=== PATIENT | female | born 1960 | race Caucasian/White ===

== ENCOUNTER 2018-04-04 17:39 | Emergency (ER) | payer BC, OTHER ==
[2018-04-04] MEDS: ONDANSETRON 4MG/2ML VIAL (J2405) IV ×3 (18:15)
[2018-04-04 18:41] LABS: BASO % 0.4 % (0.0-1.0); EOS # 0.1 10^3/uL (0.0-0.50); HEMATOCRIT 33.5 % (36.0-47.0); HEMOGLOBIN 10.2 g/dl (12.0-15.5); IMMATURE GRANULOCYTE % 0.3 % (0-3.0); LYMPH # 1.1 10^3/uL (1.5-4.5); LYMPH % 15.5 % (24.0-44.0); MEAN CORPUSCULAR HEMOGLOBIN 22.7 pg (27.0-33.0); MEAN CORPUSCULAR HGB CONC 30.4 g/dl (32.0-36.5); MEAN CORPUSCULAR VOLUME 74.6 fl (80.0-96.0); MONO # 0.6 10^3/uL (0.0-0.8); MONO % 8.2 % (0.0-5.0); NEUTROPHILS # 5.2 10^3/uL (1.8-7.7); NEUTROPHILS % 73.6 % (36.0-66.0); PLATELET COUNT, AUTOMATED 290 10^3/uL (150-450); RED BLOOD COUNT 4.49 10^6/uL (4.00-5.40); RED CELL DISTRIBUTION WIDTH 16.6 % (11.5-14.5)
[2018-04-04 19:01] LABS: D-DIMER QUANT 444.2 ng/ml (<500)
[2018-04-04 19:09] LABS: ALBUMIN/GLOBULIN RATIO 1.05 (1.00-1.93); ALKALINE PHOSPHATASE 88 U/L (45-117); ALT/SGPT 24 U/L (12-78); ANION GAP 8 MEQ/L (8-16); AST/SGOT 13 U/L (7-37); BILIRUBIN,DIRECT 0.1 MG/DL (0.0-0.2); BILIRUBIN,TOTAL 0.5 MG/DL (0.2-1.0); BLOOD UREA NITROGEN 8 MG/DL (7-18); CALCIUM LEVEL 8.8 MG/DL (8.5-10.1); CARBON DIOXIDE LEVEL 28 MEQ/L (21-32); CHLORIDE LEVEL 102 MEQ/L (98-107); CPK CREATINE PHOSPHOKINASE 127 U/L (26-192); CREATININE FOR GFR 0.99 MG/DL (0.55-1.30); GLOMERULAR FILTRATION RATE > 60.0 (>51); GLUCOSE, FASTING 103 MG/DL (70-100); LIPASE 125 U/L (73-393); POTASSIUM SERUM 3.9 MEQ/L (3.5-5.1); SODIUM LEVEL 138 MEQ/L (136-145); TOTAL PROTEIN 7.8 GM/DL (6.4-8.2); TROPONIN I < 0.02 NG/ML (< 0.10)
[2018-04-04 19:10] LABS: CK-MB VALUE MASS < 1.0 NG/ML (<3.6); MB/CK RELATIVE INDEX 0.78 (< OR =4); NT-PRO BNP 399 PG/ML (<125)
[2018-04-04 19:41] LABS: KETONE, URINE AUTO RFX 1+ mg/dL (NEGATIVE); NITRITE, URINE AUTO RFX NEGATIVE (NEGATIVE); RBC, URINE AUTO RFX 2 /HPF (0-3); SPECIFIC GRAVITY UR AUTO RFX 1.015 (1.002-1.035); SQUAM EPITHELIAL CELL UR AURFX 2 /HPF (0-6)
[2018-04-04 20:06] LABS: LEUKOCYTE ESTERASE UR AUTO RFX 2+ (NEGATIVE); WBC, URINE AUTO RFX 29 /HPF (0-3)
[2018-04-04 20:30] LABS: INFLUENZA A AMPLIFICATION NEGATIVE (NEGATIVE); INFLUENZA B AMPLIFICATION NEGATIVE (NEGATIVE)
[2018-04-04] MEDS ORDERED: ISOVUE-370 76% 100ML VIAL (Q9967) As Ordered ×3 (21:03)
== END 2018-04-04 22:11 | disposition home or self-care (01) ==
LOC: M ED 17:39
DX: J06.9 Acute upper respiratory infection, unspecified (principal); N39.0 Urinary tract infection, site not specified; I50.9 Heart failure, unspecified; I11.0 Hypertensive heart disease with heart failure; K21.9 Gastro-esophageal reflux disease without esophagitis; F32.9 Major depressive disorder, single episode, unspecified; M54.9 Dorsalgia, unspecified; G89.29 Other chronic pain; Z87.891 Personal history of nicotine dependence; Z79.899 Other long term (current) drug therapy
CPT/HCPCS: J2405

== ENCOUNTER 2018-06-02 11:50 | Emergency (ER) | payer OTHER, BC ==
[2018-06-02] MEDS: AMPICILLIN SOD/SULBACTAM SOD 3 GM in D5W MINI-BAG PLUS 100 ML IV (14:03)
[2018-06-02] MEDS: KETOROLAC 30 MG/ML VIAL (J1885) IV (14:03)
[2018-06-02 14:14] LABS: BASO % 0.9 % (0.0-1.0); EOS # 0.1 10^3/uL (0.0-0.50); EOS % 1.6 % (0.0-3.0); HEMATOCRIT 33.9 % (36.0-47.0); HEMOGLOBIN 10.1 g/dl (12.0-15.5); IMMATURE GRANULOCYTE % 0.2 % (0-3.0); LYMPH # 1.6 10^3/uL (1.5-4.5); LYMPH % 36.5 % (24.0-44.0); MEAN CORPUSCULAR HEMOGLOBIN 22.9 pg (27.0-33.0); MEAN CORPUSCULAR HGB CONC 29.8 g/dl (32.0-36.5); MEAN CORPUSCULAR VOLUME 76.7 fl (80.0-96.0); MONO # 0.4 10^3/uL (0.0-0.8); MONO % 9.5 % (0.0-5.0); NEUTROPHILS # 2.3 10^3/uL (1.8-7.7); NEUTROPHILS % 51.3 % (36.0-66.0); PLATELET COUNT, AUTOMATED 281 10^3/uL (150-450); RED BLOOD COUNT 4.42 10^6/uL (4.00-5.40); WHITE BLOOD COUNT 4.4 10^3/uL (4.0-10.0)
[2018-06-02 14:25] LABS: ANION GAP 7 MEQ/L (8-16); BLOOD UREA NITROGEN 6 MG/DL (7-18); CALCIUM LEVEL 8.5 MG/DL (8.5-10.1); CARBON DIOXIDE LEVEL 32 MEQ/L (21-32); CHLORIDE LEVEL 103 MEQ/L (98-107); CREATININE FOR GFR 0.66 MG/DL (0.55-1.30); GLOMERULAR FILTRATION RATE > 60.0 (>51); GLUCOSE, FASTING 100 MG/DL (70-100); POTASSIUM SERUM 3.1 MEQ/L (3.5-5.1); SODIUM LEVEL 142 MEQ/L (136-145)
== END 2018-06-02 15:09 | disposition home or self-care (01) ==
LOC: M ED 11:50
DX: K04.7 Periapical abscess without sinus (principal); K02.9 Dental caries, unspecified; L03.211 Cellulitis of face; Z87.891 Personal history of nicotine dependence; Z79.899 Other long term (current) drug therapy; Z79.2 Long term (current) use of antibiotics
CPT/HCPCS: J1885

== ENCOUNTER → 2018-06-19 | Outpatient (REF) | payer OTHER | LOC: M LAB REF 16:18 | DX: R30.0 Dysuria (principal) | CPT/HCPCS: 87086 ==

== ENCOUNTER → 2019-01-07 | Outpatient (CLI) | payer OTHER ==
[~2019-01-07] MED LIST: /LANS30GR OR; /ROPI5TA; /ROPI5TA OR; ACET500C OR; AMIT10TA2; AMIT10TA2 OR; AMOX500C PO; ATOR40TA75 PO; AUGM875T28 PO; BACT800T5 PO; CEFT500T OR; FERR325T OR; FLEXERIL PO; FLUO20CA19; FURO20TA2 PO; LISI-542; LISI5TAB; MULTIVIT; MULTIVIT PO; OMEP20CA3; PREV30TA; PROAAER10 INH; PROZ40CA; PROZ40CA OR; TRAM50TA2; TRAM50TA2 OR; ULTR50TA8 PO; ZANA4CAP; ZEST20TA4; ZEST20TA4 OR; ZITH250T OR
--- NOTE | 2019-01-07 18:47 | REP ---
LEFT BREAST ULTRASOUND: 01/07/2019. Clinical history: Palpable lumps left breast for 3-4 weeks, upper inner quadrant and axillary region both "pea-sized", nontender. She has a personal history of breast cancer with left lumpectomy, but no radiation or chemotherapy. Sonographic evaluation of the left breast at the 11 o'clock region upper inner quadrant at the site of the palpable lump shows slight focus of skin thickening up to 4.2 mm with the skin on either side of this about 1.5 mm thick. This fusiform thickening is homogeneous to the surrounding subcutaneous tissues and has a length of about 8 mm. Deep to it, there is heterogeneous echogenic tissue consistent with fatty change seen in the breast on mammogram. There is no architectural distortion, mass, cyst or dilated duct. In the left axilla, there is a 5.6 x 6.7 x 3.8 mm lymph node with morphologically normal sonographic appearance with an echogenic fatty central zone and hilum and a hypoechoic peripheral zone. By size and morphology this is a normal lymph node. There were no other findings in the axilla. Impression: 1. Upper inner quadrant shows a small focal area of fusiform skin thickening isoechoic to the surrounding skin. This has a length of about 8 mm and the fusiform thickness is maximum at 4 mm while surrounding skin about 1.5 mm. This would be a highly unusual presentation for breast carcinoma. 2. Left axillary region shows a 6.7 x 5.6 x 3.8 mm lymph node, by size and sonographic morphology this is a normal lymph node. Please see mammogram report this date for final assessment and recommendation. Electronically Signed by Luke Osei MD 01/07/2019 07:44 P
--- NOTE | 2019-01-07 18:59 | REP ---
BILATERAL DIAGNOSTIC DIGITAL MAMMOGRAM: 01/07/2019. Comparison: Left breast ultrasound today, mammogram 06/02/2013, 12/07/2009. Clinical history: Patient with two palpable findings for about 3 to 4 weeks left breast, one in the upper inner quadrant, the other at the high left axilla. History significant for personal history of breast cancer with lumpectomy in that left breast. Technique: Standard CC and MLO projections with 3-D tomosynthesis images and spot magnified images of the upper inner quadrant and axillary tail region. Marker placed by the patient over these areas. Findings: Breast parenchyma show a few scattered fibroglandular elements which might obscure a lesion. Only minor asymmetry in size of the breast due to prior lumpectomy on the left. At the site of the marker on the left, there is a subjacent fatty replaced lymph node along the pectoralis muscle. Other bilateral fat replaced axillary nodes are present. There is a rim calcified nodule likely fat necrosis in the right breast. This is a new but benign finding. Similar finding in the anterior aspect of the left breast also new but benign, normal. There are no clustered microcalcification, visible dominant masses, or architectural distortion or no mammographically definable skin thickening noted. Subjacent to the triangle marker in the axillary region is the lymph node. The spot magnified views show no additional finding. Likewise the upper inner quadrant shows no discrete mammographic finding on spot magnified views or tomosynthesis. Left breast ultrasound: In the upper inner quadrant at 11 o'clock there is a focal area skin thickening about 8 mm long with maximum depth of 4 mm. There is a fusiform appearance and it is isoechoic to the surrounding skin which has a thickness of 1.5 mm. In the upper left axilla at the site of the palpable finding, there is a small lymph node with normal morphology by sonography with fatty central zone and hilum and a hypoechoic periphery. Has a maximum transverse diameter of 3.8 mm, normal. Impression: 1. BIRADS 2: BI-RADS/ACR category 2 mammogram. Benign Findings. No evidence of malignancy. Mammographic and sonographic finding of the axilla morphologically normal. Small sized lymph node is noted. The focal skin thickening in the upper inner quadrant is isoechoic to surrounding skin and has a maximum thickness of 4 mm versus 1.5 mm adjacent and a maximum length of 8 mm for this fusiform finding. It is not mammographically visible. 2. Recommend followup mammography 1 year. Any decision to biopsy a palpable lesion should be based on clinical grounds. This negative report should not deter further evaluation of a dominant or suspicious physical finding. This mammogram was interpreted with the aid of an FDA-approved computer-aided detection system. A. Negative x-ray reports should not delay biopsy if a dominant or clinically suspicious mass is present. B. Four to eight percent of cancers are not identified by x-ray. C. Adenosis and dense breasts may obscure an underlying neoplasm The patient states she/he had a clinical breast exam in 12/2018. The patient letter being requested is M2. Electronically Signed by Luke Osei MD 01/07/2019 07:45 P
== END ==
LOC: M RAD 11:05
PROVIDERS: ATTEND Nurse Practitioner
DX: N63.20 Unspecified lump in the left breast, unspecified quadrant (principal); Z85.3 Personal history of malignant neoplasm of breast
CPT/HCPCS: 76642; 77066; G0279

== ENCOUNTER 2019-11-25 08:14 | Day surgery (SDC) | payer OTHER ==
[~2019-11-25] VITALS: Ht 170.2 cm; Wt 101.2 kg
[~2019-11-25 08:14] MED LIST changes: -/ROPI5TA; -/ROPI5TA OR; +ACET-683 PO; +CYCL10TA PO; +FLUO40CA PO; -LISI-542; +LISI-542 PO; +NS 1,000 ML IV ONE; +OMEP1CAP73 PO; -OMEP20CA3; +REQU1TAB15; +REQU1TAB15 OR
[2019-11-25] MEDS ORDERED: propofoL 200 MG/20 ML VIAL As Ordered ONE ×2 (08:52→09:59)
[2019-11-25] MEDS ORDERED: LIDOCAINE 2% INJ 100 MG/5 ML SDV (FOR ANES.) As Ordered ONE (09:26)
--- NOTE | 2019-11-25 10:11 | ROOR ---
Patient Name: Betsey Retana Procedure Date: 11/25/2019 9:50 AM Date of : 1960 Age: 59 Room: [facility] Gender: Female Note Status: Finalized Procedure: Colonoscopy Indications: Screening for colorectal malignant neoplasm Providers: Andres Leyva Jr, MD Referring MD: NAEL MALHOTRA MD Requesting Provider: Medicines: Propofol per Anesthesia Complications: No immediate complications. Procedure: Pre-Anesthesia Assessment: - Prior to the procedure, a History and Physical was performed, and patient medications and allergies were reviewed. The patient is competent. The risks and benefits of the procedure and the sedation options and risks were discussed with the patient. All questions were answered and informed consent was obtained. Patient identification and proposed procedure were verified by the physician and the nurse in the pre-procedure area and in the procedure room. Mental Status Examination: alert and oriented. Airway Examination: normal oropharyngeal airway and neck mobility. Respiratory Examination: clear to auscultation. CV Examination: normal. ASA Grade Assessment: II - A patient with mild systemic disease. After reviewing the risks and benefits, the patient was deemed in satisfactory condition to undergo the procedure. The anesthesia plan was to use moderate sedation / analgesia (conscious sedation). Immediately prior to administration of medications, the patient was re-assessed for adequacy to receive sedatives. The heart rate, respiratory rate, oxygen saturations, blood pressure, adequacy of pulmonary ventilation, and response to care were monitored throughout the procedure. The physical status of the patient was re-assessed after the procedure. The Colonoscope was introduced through the anus and advanced to the cecum, identified by the appendiceal orifice, ileocecal valve and palpation. The colonoscopy was performed without difficulty. The patient tolerated the procedure well. The quality of the bowel preparation was adequate. Findings: The rectum, recto-sigmoid colon, descending colon, transverse colon, ascending colon, appendiceal orifice and ileocecal valve appeared normal. A diminutive polyp was found in the cecum. The polyp was removed with a cold snare. Resection and retrieval were complete. Multiple small and large-mouthed diverticula were found in the sigmoid colon. Non-bleeding external and internal hemorrhoids were found during retroflexion. The hemorrhoids were Grade II (internal hemorrhoids that prolapse but reduce spontaneously). Impression: - The rectum, recto-sigmoid colon, descending colon, transverse colon, ascending colon, appendiceal orifice and ileocecal valve are normal. - One diminutive polyp in the cecum, removed with a cold snare. Resected and retrieved. - Diverticulosis in the sigmoid colon. Recommendation: - Discharge patient to home (ambulatory). - Repeat colonoscopy in 5-10 years for surveillance based on pathology results. Andres Leyva MD Andres Leyva Jr, MD 11/25/2019 10:10:40 AM Electronically signed by Andres Leyva Jr, MD Number of Addenda: 0 Note Initiated On: 11/25/2019 9:50 AM Estimated Blood Loss: Estimated blood loss: none.
[2019-11-25 10:35] VITALS: BP 175/84
== END 2019-11-25 10:43 | disposition home or self-care (01) ==
LOC: M OPP 08:14
PROVIDERS: ATTEND Surgery
DX: Z12.11 Encounter for screening for malignant neoplasm of colon (principal); D12.0 Benign neoplasm of cecum; K57.30 Diverticulosis of large intestine without perforation or abscess without bleeding; I11.0 Hypertensive heart disease with heart failure; I50.9 Heart failure, unspecified; E78.00 Pure hypercholesterolemia, unspecified; M19.90 Unspecified osteoarthritis, unspecified site; M79.7 Fibromyalgia; F32.9 Major depressive disorder, single episode, unspecified; G47.30 Sleep apnea, unspecified; K21.9 Gastro-esophageal reflux disease without esophagitis; F41.9 Anxiety disorder, unspecified; Z79.899 Other long term (current) drug therapy; Z87.891 Personal history of nicotine dependence

== ENCOUNTER 2020-04-11 11:53 | Emergency (ER) | payer OTHER ==
[~2020-04-11] VITALS: Ht 170.2 cm; Wt 97.7 kg
[~2020-04-11 11:53] MED LIST changes: +CYCL-707 PO; -CYCL10TA PO; -FLUO20CA19; +FLUO20CA22; -NS 1,000 ML IV ONE
[2020-04-11] MEDS ORDERED: NS 1,000 ML IV ONE (12:30)
[2020-04-11 12:59] LABS: BASO % 0.6 % (0.0-1.0); EOS # 0.1 10^3/uL (0.0-0.5); EOS % 0.8 % (0.0-3.0); HEMATOCRIT 40.3 % (36.0-47.0); HEMOGLOBIN 13.4 g/dl (12.0-15.5); LYMPH # 1.8 10^3/uL (1.5-5.0); LYMPH % 24.8 % (24.0-44.0); MEAN CORPUSCULAR HEMOGLOBIN 28.5 pg (27.0-33.0); MEAN CORPUSCULAR HGB CONC 33.3 g/dl (32.0-36.5); MEAN CORPUSCULAR VOLUME 85.7 fl (80.0-96.0); MONO # 0.8 10^3/uL (0.0-0.8); MONO % 11.8 % (0.0-5.0); NEUTROPHILS # 4.4 10^3/uL (1.5-8.5); NEUTROPHILS % 61.7 % (36.0-66.0); PLATELET COUNT, AUTOMATED 317 10^3/uL (150-450); WHITE BLOOD COUNT 7.1 10^3/uL (4.0-10.0)
[2020-04-11 13:57] LABS: ALT/SGPT 41 U/L (12-78); BILIRUBIN,DIRECT 0.3 MG/DL (0.0-0.2); BILIRUBIN,TOTAL 0.6 MG/DL (0.2-1.0); CK-MB VALUE MASS < 1.0 NG/ML (<3.6); CPK CREATINE PHOSPHOKINASE 154 U/L (26-192); FREE T4 1.86 NG/DL (0.76-1.46); LIPASE 137 U/L (73-393); MB/CK RELATIVE INDEX 0.65 (< OR =4); TOTAL PROTEIN 7.5 GM/DL (6.4-8.2); TROPONIN I < 0.02 NG/ML (< 0.10)
[2020-04-11 14:30] VITALS: BP 149/81
--- NOTE | 2020-04-11 16:50 | REP ---
PORTABLE CHEST X-RAY: SINGLE VIEW. HISTORY: Chest pain. Comparison chest x-ray: April 04, 2018 FINDINGS: Monitoring electrodes overlie the chest. The lungs are well inflated and clear. The pleural angles are sharp. Heart size is normal. Pulmonary vasculature is not increased. IMPRESSION: No active disease. Electronically Signed by Moisés Barrios MD 04/11/2020 06:01 P
--- NOTE | 2020-04-11 18:53 | ECGEPIP ---
[facility] - ED Test Date: 2020-04-11 Pat Name: VIV HEBERT Department: Room: - Gender: Female Ext[employer] Process: irving : 1960 Requested By: FRANCESCO RENO PA-C. Order Number: [id number] Reading MD: Moose Warren Measurements Intervals [place] Rate: 89 P: 33 ND: 145 QRS: 22 QRSD: 75 T: 48 QT: 374 QTc: 456 Interpretive Statements SINUS RHYTHM POSSIBLE INCOMPLETE RIGHT BUNDLE BRANCH BLOCK SIMILAR TO 04/04/18 Electronically Signed on 04-11-2020 18:53:29 EDT by Moose Warren
== END 2020-04-11 14:59 | disposition home or self-care (01) ==
LOC: EDBD 11:53 → M ED 11:53
DX: R42 Dizziness and giddiness (principal); E86.0 Dehydration; R55 Syncope and collapse; I11.0 Hypertensive heart disease with heart failure; I50.9 Heart failure, unspecified; K21.9 Gastro-esophageal reflux disease without esophagitis; Z72.0 Tobacco use; Z79.899 Other long term (current) drug therapy

== ENCOUNTER → 2022-08-05 | Outpatient (CLI) | payer OTHER ==
[~2022-08-05] MED LIST changes: -LISI-542 PO; +LISI5TAB11 PO
== END ==
LOC: M RAD 08:11
PROVIDERS: ATTEND Internal Medicine
DX: Z87.891 Personal history of nicotine dependence (principal)

== ENCOUNTER → 2023-10-14 | Outpatient (REF) | payer OTHER ==
[2023-10-14 13:59] LABS: APPEARANCE, URINE CLEAR (CLEAR); BACTERIA, URINE AUTO NEGATIVE (NEGATIVE); BILIRUBIN, URINE AUTO NEGATIVE (NEGATIVE); BLOOD, URINE BLOOD NEGATIVE (NEGATIVE); COLOR, URINE YELLOW (YELLOW); GLUCOSE, URINE (UA) AUTO NEGATIVE (NEGATIVE); KETONE, URINE AUTO NEGATIVE (NEGATIVE); LEUKOCYTE ESTERASE, URINE AUTO NEGATIVE (NEGATIVE); MUCUS, URINE SMALL (NEGATIVE); NITRITE, URINE AUTO NEGATIVE (NEGATIVE); PROTEIN, URINE AUTO NEGATIVE (NEGATIVE); RBC, URINE AUTO 0 /HPF (0-3); SPECIFIC GRAVITY URINE AUTO 1.009 (1.002-1.035); SQUAMOUS EPITHELIAL CELL UR AU 0 /HPF (0-6); UROBILINOGEN, URINE AUTO 0.2 mg/dL (0.0-2.0); WBC, URINE AUTO 0 /HPF (0-3)
== END ==
LOC: M SMT 12:49
PROVIDERS: ATTEND Specialist
DX: N39.46 Mixed incontinence (principal)

== ENCOUNTER → 2025-03-29 | Outpatient (CLI) | payer MEDICARE ==
[~2025-03-29] MED LIST changes: +FLUO-365; -FLUO20CA22
== END ==
LOC: M RAD 13:13
PROVIDERS: ATTEND Family Medicine
DX: Z87.891 Personal history of nicotine dependence (principal)